=== PATIENT | male | born 1985 | race Caucasian/White ===

== ENCOUNTER → 2019-12-01 | Outpatient (REF) ==
--- NOTE | 2019-12-01 14:47 | Diagnostic Imaging Report ---
INDICATION: Injury to the right hand. TIME OF EXAM: 02:22 p.m. EXAMINATION: Multiple views of the right hand were obtained. FINDINGS: There are acute fractures of the distal fourth and fifth metacarpals. Very mild volar angulation of the distal fracture fragments is seen. First through third metacarpals are intact. Phalanges are intact. Carpus is unremarkable. IMPRESSION: Mildly angulated distal fourth and fifth metacarpal fractures. Dictated by: Dictated on workstation # [id number]
== END ==
LOC: OCC 14:10
PROVIDERS: ATTEND Family Medicine
DX: S62.394A Other fracture of fourth metacarpal bone, right hand, initial encounter for closed fracture (principal); S62.396A Other fracture of fifth metacarpal bone, right hand, initial encounter for closed fracture; X58.XXXA Exposure to other specified factors, initial encounter
CPT/HCPCS: 73130